=== PATIENT | female | born 1990 | race Hispanic/Latino ===

== ENCOUNTER 2020-04-24 22:59 | Emergency (ER) | payer SELFPAY ==
[2020-04-24] MEDS ORDERED: diphenhydrAMINE 50 MG/ML VIAL ONE (23:13)
[2020-04-24] MEDS ORDERED: Famotidine/PF 20 mg/2ml Vial ONE (23:21)
[2020-04-24] MEDS ORDERED: methylPREDNISolone Sod Succ/PF 125 MG/2 ML VIAL ONE (23:21)
[2020-04-24] MEDS ORDERED: EPINEPHrine 1 MG/ML AMP ONE (23:21)
== END 2020-04-25 00:25 | disposition home or self-care (01) ==
LOC: ERS 22:59
DX: L50.0 Allergic urticaria (principal)
CPT/HCPCS: 96372; 96374; 96375; J0171; J1200; J2930; S0028